=== PATIENT | male | born 2000 | race African-American/Black ===

== ENCOUNTER 2025-09-09 09:36 | Outpatient (AMB) | payer OTHER, SELFPAY ==
--- NOTE | 2025-09-09 09:40 | A.OFFPC_ITS ---
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 Required: No Accompanied by: Self / Same As Patient Allergies lidocaine Allergy (Intermediate, Verified 09/09/25 09:44) Facial Swelling Medication List - Last Reconciled 09/09/25 by Demetria Richard MD No Known Home Meds Tobacco use date assessed: 09/09/25 Dental Screening Dental Screen Date: 09/09/25 Did you have a dental visit in the last 12 months?: Yes Did you have a dental problem in the last 6 months where you did not have access to dental care?: No Was dental information given to patient?: Patient has dentist HPI HPI Comments History of Present Illness Details The patient is a 24 year old male presenting to re-establish care and for a physical. Gastroesophageal reflux disease: The patient reports intermittent heartburn symptoms, which are not fully r esolved from a previous occurrence. He describes a recent severe episode a few days ago after eating pizza, stating his chest felt like it was on fire. He notes that symptoms are triggered by certain foods, such as those with tomato sauce, but the triggers are inconsistent. He does not associate symptoms with alcohol intake and denies drinking coffee. He denies any associated diarrhea or abdominal pain with these episodes. Health Maintenance: The patient is a 24-year-old male presenting for an annual physical exam to re- establish care. He has a history of an allergic reaction to lidocaine during a dental procedure. He reports his allergies are under control and had an eye exam as part of a medical screening for his new job but has not had a formal dilated exam in the past year or two. 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 - Alcohol Use: Reports occasional alcoho l intake. - Caffeine Use: Denies drinking coffee. - Exercise: He continues to work out, ex ercise, and play sports recreationally. - Education: Has a degree in [employer]. [employer] Medical History (Updated 09/09/25 @ 17:00 by Demetria Richard MD) Routine medical exam Concussion Obstructive nephropathy Allergic rhinitis GERD (gastroesophageal reflux disease) ADHD Surgical History (Updated 09/09/25 @ 07:56 by Demetria Richard MD) History of circumcision as History of ankle surgery Family History (Updated 09/09/25 @ 07:57 by Demetria Richard MD) Maternal Grandmother Colon polyp Social History Housing: House Patient Tobacco Use Status: Never used Tobacco e-Cigarette/Vaping Use: Former Use service: No Current occupational status: employed Current occupation: medical officer psychiatry Questionnaire PHQ-9 Over the last 2 weeks, how often have you been bothered by any of the following problems? 1. Little interest or pleasure in doing things: several days 2. Feeling down, depressed, or hopeless: not at all 3. Trouble falling or staying asleep, or sleeping too much: several days 4. Feeling tired or having little energy: several days 5. Poor appetite or overeating: several days 6. Feeling bad about yourself - or that you are a failure or have let yourself or your family down: not at all 7. Trouble concentrating on things, such as reading the newspaper or watching television: several days 8. Moving or speaking so slowly that other people could have noticed. Or the opposite - being so fidgety or restless that you have been moving around a lot more than usual: not at all 9. Thoughts that you would be better off or of hurting yourself in some way: not at all Total score: 5 Depression Screening Interpretation: Negative Depression Screening Done: Yes [id number] - PHQ-9 Billing: Yes Source: Developed by Drs. Mike Brennan, Patricia Gao, Peter Mukherjee and colleagues, with an educational gonzalez from [employer]. Thrive Questionnaire Date Thrive assessed: 09/09/25 I am a: Patient What is your living situation today?: I have a steady place to live Within the past 12 months, did the food you bought not last and you didn't have the money to get more?: Never true Within the past 12 months, did you worry whether your food would run out before you got money to buy more?: Never true Do you have trouble paying for medicines?: No Do you have trouble getting transportation to medical appointments?: No Do you have trouble paying your heating and electricity bill?: No Do you have trouble taking care of your child, family member or friend?: No Do you have trouble with day-to-day activities such as bathing, preparing meals, shopping, managing finances, etc.?: No Are you currently unemployed and looking for a job?: No Are you interested in more education?: No Please select the resources that you would like help with: None THRIVE Score: 0 AUDIT C Alcohol Use Questionnaire (AUDIT-C) 1. How often do you have a drink containing alcohol?: Monthly or less 2. How many drinks containing alcohol do you have on a typical day when you are drinking?: 1 or 2 3. How often do you have six or more drinks on one occasion?: Less than monthly Total Score: 2 LURDES-7 AMB Questionnaire LURDES-7 Date LURDES - 7 assessed: 09/09/25 Feeling nervous, anxious, or on edge: 2 = More than half the days Not being able to stop or control worryin = More than half the days Worrying too much about different things: 2 = More than half the days Trouble relaxin = Several days Being so restless that it is hard to sit still: 1 = Several days Becoming easily annoyed or irritable: 1 = Several days Feeling afraid as if something awful might happen: 2 = More than half the days Total LURDES-7 score (0-4 normal; 5-9 mild; 10-14 moderate; 15-21 severe): 11 Source: Developed by Drs. Mike Brennan, Patricia Gao, Peter Mukherjee and colleagues, with an educational gonzalez from [employer]. Review of Systems Narrative Review of Systems - General: Denies any specific concerns. - Gastrointestinal: Reports intermittent heartburn, described as his chest being on fire, triggered by foods like pizza with tomato sauce. - Gastrointestinal: Denies diarrhea or abdominal pain. - Allergic/Immunologic: Reports allergies are under control. Physical exam (Primary Care) Vital Signs: Last Vital Signs Temp 97.1 F 09/09/25 09:43 Pulse 58 11/18/25 09:43 Resp 16 09/09/25 09:43 BP 104/76 09/09/25 09:43 Pulse Ox 97 09/09/25 09:43 Oxygen Delivery Method Room Air 09/09/25 09:43 BMI result Body Mass Index 26.3 Tobacco/Smoking Status: Tobacco use Status Tobacco use date assessed 09/09/25 09/09/25 09:42 Patient Tobacco Use Status Never used Tobacco 09/09/25 09:48 e-Cigarette/Vaping Use Former Use 09/09/25 09:48 PHQ-9: PHQ-9 Score PHQ-9: Total score 5 09/09/25 10:18 Depression Screening Interpretation: Negative Thrive Assessment: Date of Thrive Assessment Date Thrive assessed 09/09/25 09/09/25 09:48 Narrative Physical Exam - Ears: Bilateral external auditory canals and tympanic membranes are clear, without erythema. - Oropharynx: No erythema noted. - Cardiovascular: Normal heart rhythm noted. A very soft murmur is present. - Neck: Carotid arteries are clear to auscultation bilaterally, with no bruits or abnormal sounds. - Lungs: Clear to auscultation bilaterally. - Abdomen: Bowel sounds are normal. - Abdomen: Soft, non-tender, and non-distended. - Extremities: No lower extremity edema. - Lymphatics: No lymph node swelling noted in the neck or supraclavicular area. Coding Level of Care Code Est Pt Prev Care 18-39y(58554) Diagnoses Routine medical exam Z00.00 Gastroesophageal reflux disease without esophagitis K21.9 Esophagitis presence: without esophagitis Additional Codes PHQ-9 - 14275 - PHQ-9 Billing: Yes ([id number]) Assessment & Plan Assessment & Plan (1) Routine medical exam: Code(s): Z00.00 - Encounter for general adult medical examination without abnormal findings Category: Medical (2) GERD (gastroesophageal reflux disease): Code(s): K21.9 - Gastro-esophageal reflux disease without esophagitis Category: Medical Qualifiers: Esophagitis presence: without esophagitis Qualified Code(s): K21.9 - Gastro-esophageal reflux disease without esophagitis Plan Assessment and Plan 1. Gastroesophageal reflux disease - The patient experiences intermittent heartburn, typically triggered by acidic foods such as tomato sauce. - A prescription for omeprazole 20 mg will be sent to his pharmacy to be used as needed. - He was counseled to take it for one week for flare-ups or prophylactically before a trigger meal. - If symptoms worsen or the pattern changes, a referral to Gastroenterology for further evaluation will be made. 2. Health Maintenance - Screening labs including a CBC, cholesterol panel, and diabetes screen will be drawn today. - He was advised to establish care with an eye doctor for a baseline dilated eye exam. 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 Plan - A prescription for omeprazole 20 mg (#30 tablets) will be sent to the pharmacy for as-needed use for heartburn. - Patient was advised to take omeprazole for a week during an episode or 1-2 hours prior to consuming a known food trigger. - If heartburn becomes more frequent or patterns change, the patient should follow up for a gastroenterology referral for a possible endoscopy. - Screening labs including a complete blood count, cholesterol screen, and diabetes screen will be performed today. - Recommended establishing care with an eye doctor for a baseline dilated eye exam. - Advised to follow up annually for a physical exam. - Follow up in 1 year for physical Discussion Notes I discussed the patient's intermittent heartburn, which is consistent with GERD, and reviewed triggers such as tomato-based foods. I prescribed omeprazole 20 mg for as-needed use. I ordered screening labs, including a CBC, cholesterol panel, and a diabetes screen. Patient Instructions - A prescription for omeprazole 20 mg (also called Prilosec) has been sent to your pharmacy for heartburn. - If you have heartburn, take one pill each day for one week. - You can also take one pill an hour or two before you eat something you know might cause heartburn, like spicy food or tomato sauce. - If your heartburn gets worse or happens more often, please let us know so we can have you see a specialist. - We recommend you find an eye doctor to get your eyes checked fully, especially since you will use computers a lot at work. Orders: Orders Comprehensive Met. Panel Today K21.9 - Gastro-esophageal reflux disease without esophagitis, Z00.00 - Encounter for general adult medical examination without abnormal findings Complete Blood Count Auto Diff Today K21.9 - Gastro-esophageal reflux disease without esophagitis, Z00.00 - Encounter for general adult medical examination without abnormal findings Lipid Panel Today K21.9 - Gastro-esophageal reflux disease without esophagitis, Z00.00 - Encounter for general adult medical examination without abnormal findings Medications: New omeprazole 20 mg PO DAILY 30 caps 5RF
[2025-09-09 09:43] VITALS: BP 104/76; PULSE 58; RESP 16; TEMP 36.2; O2SAT 97; BMI 26.3
== END 2025-09-09 10:18 | disposition home or self-care (01) ==
LOC: HO.HMCHD 09:36
PROVIDERS: PCP Internal Medicine; Visit Provider Internal Medicine
DX: Z00.00 Encounter for general adult medical examination without abnormal findings (principal); K21.9 Gastro-esophageal reflux disease without esophagitis

== ENCOUNTER → 2025-09-09 09:36 | Outpatient (BNVA) | payer OTHER, SELFPAY | PROVIDERS: PCP Internal Medicine; Visit Provider Internal Medicine | DX: Z00.00 Encounter for general adult medical examination without abnormal findings (principal); K21.9 Gastro-esophageal reflux disease without esophagitis | CPT/HCPCS: 96127 ==

== ENCOUNTER 2025-09-09 10:21 | Outpatient (REF) | payer OTHER, SELFPAY ==
[2025-09-09 11:48] LABS: MANUAL DIFF FLAG NO
[2025-09-09 12:01] LABS: Hematocrit 45.3 % (42.0-52.0); Hemoglobin 15.3 g/dl (14.0-18.0); Imm Gran Abs Auto 0.02 X10*3/uL (0.00-0.03); Imm Gran Pct Auto 0.5 % (0.0-0.4); Lymphocytes Absolute Auto 1.8 X10*3/uL (1.2-4.9); Mean Corpuscular HGB Conc 33.8 g/dl (31.0-36.0); Mean Corpuscular Hemoglobin 28.6 pg (27.0-33.0); Mean Corpuscular Volume 84.7 fL (80.0-98.0); NRBC Abs Auto 0.000 X10*3/uL (0.0-0.012); NRBC Pct Auto 0.0 /100WBC (0.0-0.2); Platelet Count 227 X10*3/uL (160-400); Red Blood Count 5.35 X10*6/uL (4.60-5.80); White Blood Count 4.4 X10*3/uL (4.8-10.8)
[2025-09-09 12:07] LABS: Alanine Aminotransferase 23 U/L (0-40); Albumin Level 4.7 g/dL (3.5-5.0); Alkaline Phosphatase 54 U/L (39-117); Anion Gap 12 (12-20); Aspartate Amino Transferase 21 U/L (5-37); Blood Urea Nitrogen 18 mg/dL (9-16); Calcium 9.6 mg/dL (8.4-10.2); Carbon Dioxide 28 mmol/L (22-29); Chloride 106 mmol/L (96-108); Cholesterol 213 mg/dL (<200); Estimated Glomerular Filt Rate > 60; HDL Cholesterol 92 mg/dL (>40); Potassium 4.5 mmol/L (3.3-5.1); Sodium 141 mmol/L (135-145); Total Protein 7.6 g/dL (6.5-8.0); Triglycerides 67 mg/dL (<150)
== END 2025-09-09 10:22 | disposition home or self-care (01) ==
LOC: HO.10HDL 10:21
PROVIDERS: Visit Provider Internal Medicine
DX: Z00.00 Encounter for general adult medical examination without abnormal findings (principal); K21.9 Gastro-esophageal reflux disease without esophagitis; Z13.6 Encounter for screening for cardiovascular disorders
CPT/HCPCS: 36415; 80053; 80061; 85025